=== PATIENT | female | born 1970 | race Caucasian/White ===

== ENCOUNTER 2024-08-30 10:05 | Day surgery (SDC) | payer OTHER, SELFPAY ==
[2024-08-30] VITALS (12 sets, daily range): BP systolic 112–154; BP diastolic 41–57; BMI 86.5
[2024-08-30 10:45] LABS: Hematocrit 42.3 % (37.0-47.0); Hemoglobin 14.4 g/dL (12.0-16.0); Mean Corpuscular Volume 85.3 fL (81.0-99.0); Mean Platelet Volume 10.6 fL (7.4-10.4); Platelet Count 238 10^3/uL (130-400); Red Blood Cell Count 4.96 10^6/uL (4.20-5.40); Red Cell Dist. Width 13.2 % (11.5-14.5); White Blood Cell Count 9.4 10^3/uL (4.8-10.8)
[2024-08-30 11:16] LABS: Glucose - Point of Care 171 mg/dl (70-99)
--- NOTE | 2024-08-30 16:26 | ITS.CL.PN ---
Co Founder - Procedure Note
Procedure
Procedure Note:
CARDIAC CATHETERIZATION REPORT
Date of Procedure: 08/30/2024
Referring: Dr. Micky Olivier DO
INDICATION: positive cardiac stress test, pre-operative risk assessment for bariatric surgery
PROCEDURE:
1. Left heart catheterization
2. Coronary angiography
ACCESS:
6 [place] right radial artery
CATHETERS:
1. 6 [place] JR4
2. 6 [place] JL3.5
HEMODYNAMIC DATA
LV 159/15 (EDP 24) mmHg
AO 146/78 (mean 106) mmHg
CORONARY ANGIOGRAPHY
Dominance: right
LM: normal large vessel
LAD: large caliber vessel giving rise to one large diagonal branch. There are mild luminal irregularities without obstructive CAD.
LCx: large caliber vessel giving rise to a large branching OM1/ramus and a moderate caliber LPL branch. There are mild luminal irregularities without obstructive CAD.
RCA: moderate caliber vessel giving rise to a moderate caliber RPDA and small RPL system. There is a focal 60-70% stenosis in the distal RCA with SHANNON 3 flow distally.
RADIATION:
Radiation (mGy): 334
DAP (cm2.Gy): 37
Fluoroscopy time (minutes): 2.8
CONCLUSIONS
1. Single vessel obstructive coronary artery disease in a right dominant system.
2. Elevated LV filling pressure with no gradient across the aortic valve.
RECOMMENDATIONS:
1. Expectant management after cardiac catheterization via right radial approach
2. Management of HFpEF with consideration for diuretics and SGLT2i
3. Secondary prevention of CAD with ASA and high intensity statin, risk factor modification
3. Given non-critical single vessel CAD, she is at acceptable risk from a coronary artery disease standpoint to undergoing bariatric surgery. Revascularization of the RCA could be considered on a symptom driven basis.
Copy to: Dr. Micky Olivier DO (records specialist), Dr. Beulah Lai, DO (PCP
Signed: Eliseo Clancy MD, PhD
== END 2024-08-30 16:40 | disposition home or self-care (01) ==
LOC: CATH 10:05
PROVIDERS: ATTENDING PHYSICIAN Student in an Organized Health Care Education/Training Program; FAMILY PHYSICIAN Internal Medicine; OTHER PHYSICIAN Internal Medicine Cardiovascular Disease
DX: I25.10 Atherosclerotic heart disease of native coronary artery without angina pectoris (principal); R94.39 Abnormal result of other cardiovascular function study; I45.2 Bifascicular block; E11.9 Type 2 diabetes mellitus without complications; K21.9 Gastro-esophageal reflux disease without esophagitis; Z79.82 Long term (current) use of aspirin; Z79.85 Long-term (current) use of injectable non-insulin antidiabetic drugs; Z79.4 Long term (current) use of insulin
CPT/HCPCS: 82962; 85027; 93005; 93458; C1769; C1894; Q9967